=== PATIENT | male | born 1995 | race Native Hawaiian/Other Pacific Islander ===

== ENCOUNTER → 2020-06-16 | Outpatient (CLI) | payer OTHER ==
[~2020-06-16] MED LIST: ALBU8.5H2 IH; BENZ-13 PO; DOXY100C2 PO; NAPR-243 PO; PRD20T PO
--- NOTE | 2020-06-16 16:28 | Diagnostic Imaging Report ---
PROCEDURE: MRI lumbar spine. TECHNIQUE: Multiplanar, multisequence MRI of the lumbar spine was performed without contrast. DATE: June 16, 2020. COMPARISON: None. INDICATION: 25-year-old male, history of fall from 9' two weeks ago. Mid and low back pain. History of L2 fracture. FINDINGS: There is a fracture of the L2 vertebral body with a displaced fracture fragment containing the anterior and superior aspect of the L2 vertebral body. There is associated marrow edema. There is no clear identification of the fracture line to involve the posterior elements. There is concavity of the superior endplate of L2 with roughly 25% vertebral body height loss anteriorly. There is also marrow edema within the central aspect of the L1 vertebral body. There is a nondisplaced L1 vertebral body fracture with the fracture line best identified on sagittal T1 sequence image 9. There is no displaced fracture fragment at the level of L1. There is no L1 vertebral body height loss. There is no additional identified acute fracture. There is no evidence of a diffuse marrow infiltrating or replacing process. The visualized cord and conus medullaris is unremarkable and terminates at the L1 level. There is a mild focal kyphosis at the level of the L1-L2 disc space. There is soft tissue edema in the interspinous space between L1 and L2 and more superficial posterior subcutaneous tissues. L1-L2: There is no disc bulge. The facet joints and ligamentum flavum are unremarkable. There is no foraminal narrowing. There is no spinal canal stenosis. L2-L3: There is no disc bulge. The facet joints and ligamentum flavum are unremarkable. There is no foraminal narrowing. There is no spinal canal stenosis. L3-L4: There is no disc bulge. The facet joints and ligamentum flavum are unremarkable. There is no foraminal narrowing. There is no spinal canal stenosis. L4-L5: There is no disc bulge. The facet joints and ligamentum flavum are unremarkable. There is no foraminal narrowing. There is no spinal canal stenosis. L5-S1: There is no disc bulge. The facet joints and ligamentum flavum are unremarkable. There is no foraminal narrowing. There is no spinal canal stenosis. IMPRESSION: 1. Comminuted displaced acute fracture of the L2 vertebral body with displaced fracture fragment involving the anterior superior portion of L2. There is no MRI visible fracture involvement of the posterior elements although correlation with prior CT imaging, if available, would be recommended. 2. Nondisplaced acute fracture involving the L1 vertebral body. 3. Focal kyphosis at the level of the L1-L2 disc space. 4. Abnormal edema in the interspinous space between L1 and L2 which could reflect a strain injury. There is also more superficial posterior subcutaneous edema in this region. 5. No identified disc protrusion or extrusion. 6. No foraminal or spinal stenosis at the lumbar spine levels. Dictated by: Dictated on workstation # [id number]
--- NOTE | 2020-06-16 16:32 | Diagnostic Imaging Report ---
EXAM: MRI thoracic spine without contrast. DATE: June 16, 2020. INDICATION: 25-year-old male, recent fall from 9'. Mid and low back pain. Known L2 fracture. COMPARISON: None available. FINDINGS: Please see the separately dictated MRI lumbar spine report for description of fractures of L1 and L2. The alignment of the thoracic spine is unremarkable. There is no evidence of a diffuse marrow infiltrating or replacing process. There is no identified acute fracture of the thoracic spine. The thoracic disc heights are well preserved. There is no identified disc protrusion or extrusion. There is no spinal stenosis at the thoracic spine levels. There is no identified abnormal cord signal. IMPRESSION: 1. No identified acute abnormality of the thoracic spine. 2. Please see the separately dictated MRI lumbar spine report for description of the L1 and L2 vertebral body fractures. Dictated by: Dictated on workstation # [id number]
== END ==
LOC: RAD 15:30
PROVIDERS: ATTEND Nurse Practitioner Family
DX: Z02.89 Encounter for other administrative examinations (principal); S32.020A Wedge compression fracture of second lumbar vertebra, initial encounter for closed fracture; M54.5 Low back pain; M54.6 Pain in thoracic spine; R22.2 Localized swelling, mass and lump, trunk; W17.89XA Other fall from one level to another, initial encounter; M40.295 Other kyphosis, thoracolumbar region
CPT/HCPCS: 72146; 72148